=== PATIENT | female | born 1990 | race African-American/Black ===

== ENCOUNTER 2022-10-02 16:34 | Emergency (ER) | payer OTHER ==
[2022-10-02 17:05] VITALS: RESP 18; BMI 21.9
[2022-10-02 21:47] LABS: BASO % 0.8 % (0-2.0); EOS % 0.6 % (0-4.5); HEMATOCRIT 39.4 % (32.4-45.2); HEMOGLOBIN 12.9 GM/dL (10.7-15.3); LYMPH % 31.6 % (8-40); MCHC 32.8 g/dl (32.0-36.0); MEAN CELL VOLUME 88.4 fl (80-96); MONO % 6.6 % (3.8-10.2); NEUT % 60.4 % (42.8-82.8); PLATELET COUNT 261 10^3/uL (134-434); RBC 4.45 M/mm3 (3.60-5.2); RDW 14.1 % (11.6-15.6); WHITE BLOOD COUNT 6.8 K/mm3 (4.0-10.0)
[2022-10-02 22:08] LABS: CALCIUM 9.7 mg/dL (8.5-10.1)
[2022-10-02 22:09] LABS: ALBUMIN 3.6 g/dl (3.4-5.0); BLOOD UREA NITROGEN 12.6 mg/dL (7-18)
[2022-10-02 22:12] LABS: CREATININE 1.2 mg/dL (0.55-1.3)
[2022-10-02 22:13] LABS: TOT PROT 7.6 g/dl (6.4-8.2)
[2022-10-02 22:14] LABS: BILIRUBIN,TOTAL 0.3 mg/dL (0.2-1)
[2022-10-02] MEDS ORDERED: HALOPERIDOL LACTATE 5 MG/ML IM ONE ×2 (22:38→22:44)
[2022-10-02] MEDS ORDERED: LORazepam 2 MG/ML SDV VIAL IVPUSH ONE (22:41)
[2022-10-02] MEDS ORDERED: SODIUM CHLORIDE 0.9% 500 ML INFUS.BAG IV ONE (23:25)
[2022-10-03 01:21] VITALS: BP 176/98; PULSE 85; TEMP 98
== END 2022-10-03 01:23 | disposition home or self-care (01) ==
LOC: JER 16:34
PROC: 3E033GC Introduction of Other Therapeutic Substance into Peripheral Vein, Percutaneous Approach (ICD-10-PCS; principal; 2022-10-02)
PROC: 3E023GC Introduction of Other Therapeutic Substance into Muscle, Percutaneous Approach (ICD-10-PCS; principal; 2022-10-02)
DX: K59.09 Other constipation (principal)
CPT/HCPCS: 36415; 74177-TC; 80053; 83690; 84703; 85025; 99285-25; Q9967

== ENCOUNTER 2023-05-16 17:11 | Emergency (ER) | payer OTHER ==
[2023-05-16 17:34] VITALS: TEMP 97.3; BMI 21.1
[2023-05-16] MEDS ORDERED: ACETAMINOPHEN 1000 MG/100 ML BAG IVPB ONE (17:54)
[2023-05-16] MEDS ORDERED: ONDANSETRON 4 MG/2 ML VIAL IVPUSH ONE (18:29)
[2023-05-16] MEDS ORDERED: SODIUM CHLORIDE 0.9% 1000 ML INFUS.BAG IV ONE (18:29)
[2023-05-16] MEDS ORDERED: FAMOTIDINE 20 MG/50 ML IVPB 20 MG/50 ML MG IVPB ONE ×2 (18:29→18:51)
[2023-05-16] MEDS ORDERED: LABETALOL HCL 5 MG/1 ML (100MG/20 ML VIAL) IVPUSH ONE (18:29)
[2023-05-16 18:47] VITALS: PULSE 80; RESP 16
[2023-05-16 18:49] LABS: BASO % 0.4 % (0-2.0); EOS % 1.1 % (0-4.5); HEMATOCRIT 37.9 % (32.4-45.2); LYMPH % 18.5 % (8-40); MCH 28.3 pg (25.7-33.7); MCHC 31.7 g/dl (32.0-36.0); MEAN CELL VOLUME 89.2 fl (80-96); MEAN PLT VOLUME 11.7 fl (7.5-11.1); PLATELET COUNT 239 10^3/uL (134-434); RBC 4.24 M/mm3 (3.60-5.2); RDW 14.2 % (11.6-15.6); WHITE BLOOD COUNT 6.7 K/mm3 (4.0-10.0)
[2023-05-16] MEDS ORDERED: LABETALOL HCL 20 MG/4 ML VIAL ONE (18:50)
[2023-05-16] MEDS ORDERED: ACETAMINOPHEN INJECTION 100 ML IVPB ONE (18:50)
[2023-05-16] MEDS ORDERED: ONDANSETRON 4 MG/2 ML VIAL ONE (18:51)
[2023-05-16 19:26] LABS: CHLORIDE 110 mmol/L (98-107); POTASSIUM 4.2 mmol/L (3.5-5.1); SODIUM 144 mmol/L (136-145)
[2023-05-16 19:30] LABS: ALBUMIN 3.3 g/dl (3.4-5.0); ANION GAP 7 MMOL/L (8-16); BLOOD UREA NITROGEN 14.3 mg/dL (7-18); CALCIUM 9.1 mg/dL (8.5-10.1); CO2 27 mmol/L (21-32); GLUCOSE,RANDOM 107 mg/dL (74-106); LIPASE 154 U/L (73-393)
[2023-05-16 19:33] LABS: CREATININE 1.3 mg/dL (0.55-1.3); SGOT/AST 14 U/L (15-37); SGPT/ALT 14 U/L (13-61)
[2023-05-16 19:35] LABS: BILIRUBIN,TOTAL < 0.1 mg/dL (0.2-1); TOT PROT 7.2 g/dl (6.4-8.2)
[2023-05-16 19:36] LABS: ALK PHOS 99 U/L (45-117)
[2023-05-16] MEDS ORDERED: LORazepam 2 MG/ML SDV VIAL IVPUSH ONE ×2 (20:46→21:20)
[2023-05-16] MEDS ORDERED: AMOX TR/POTASSIUM CLAVULANATE 125 MG/5 ML BOTTLE 75ML PO ONE (22:29)
[2023-05-16 22:40] VITALS: BP 150/109
[2023-05-16] MEDS ORDERED: AMOX TR/POTASSIUM CLAVULANATE 400 MG/5 ML BOTTLE PO ONE (23:00)
[2023-05-16] MEDS ORDERED: AMOX TR/POTASSIUM CLAVULANATE 600 MG/5 ML PO ONE (23:00)
== END 2023-05-16 23:55 ==
LOC: JER 17:11
PROC: 3E033GC Introduction of Other Therapeutic Substance into Peripheral Vein, Percutaneous Approach (ICD-10-PCS; principal; 2023-05-16)
PROC: 3E033NZ Introduction of Analgesics, Hypnotics, Sedatives into Peripheral Vein, Percutaneous Approach (ICD-10-PCS; 2023-05-16)
PROC: 3E033GC Introduction of Other Therapeutic Substance into Peripheral Vein, Percutaneous Approach (ICD-10-PCS; 2023-05-16)
PROC: 3E033GC Introduction of Other Therapeutic Substance into Peripheral Vein, Percutaneous Approach (ICD-10-PCS; 2023-05-16)
PROC: 3E033GC Introduction of Other Therapeutic Substance into Peripheral Vein, Percutaneous Approach (ICD-10-PCS; 2023-05-16)
PROC: 3E033GC Introduction of Other Therapeutic Substance into Peripheral Vein, Percutaneous Approach (ICD-10-PCS; 2023-05-16)
DX: T17.908A Unspecified foreign body in respiratory tract, part unspecified causing other injury, initial encounter (principal); R11.10 Vomiting, unspecified; R10.9 Unspecified abdominal pain; H93.8X3 Other specified disorders of ear, bilateral; Z20.822 Contact with and (suspected) exposure to COVID-19
CPT/HCPCS: 0241U-QW; 36415; 74018-TC-FY; 80053; 83605; 83690; 84703; 85025; 99285-25

== ENCOUNTER 2023-06-03 17:33 | Emergency (ER) | payer OTHER ==
[2023-06-03 17:46] VITALS: TEMP 98.2; BMI 20.9
[2023-06-03] MEDS ORDERED: ACETAMINOPHEN 325 MG TABLET (FP) PO ONE (20:37)
[2023-06-03] MEDS ORDERED: ACETAMINOPHEN 325 MG TABLET (FP) ONE (21:15)
[2023-06-03] MEDS ORDERED: ACETAMINOPHEN INJECTION 100 ML IVPB ONE (21:23)
[2023-06-03] MEDS ORDERED: ACETAMINOPHEN 1000 MG/100 ML BAG IVPB ONE (21:23)
[2023-06-03 21:55] LABS: BASO % 0.8 % (0-2.0); EOS % 1.3 % (0-4.5); HEMATOCRIT 39.1 % (32.4-45.2); LYMPH % 34.3 % (8-40); MCH 29.1 pg (25.7-33.7); MCHC 33.4 g/dl (32.0-36.0); MEAN CELL VOLUME 87.3 fl (80-96); MEAN PLT VOLUME 11.3 fl (7.5-11.1); NEUT % 53.6 % (42.8-82.8); PLATELET COUNT 248 10^3/uL (134-434); RBC 4.48 M/mm3 (3.60-5.2); WHITE BLOOD COUNT 5.9 K/mm3 (4.0-10.0)
[2023-06-03 22:04] LABS: POTASSIUM 4.3 mmol/L (3.5-5.1)
[2023-06-03 22:06] LABS: ALBUMIN 3.4 g/dl (3.4-5.0); BLOOD UREA NITROGEN 12.1 mg/dL (7-18); CALCIUM 9.1 mg/dL (8.5-10.1); MAGNESIUM 1.8 mg/dL (1.8-2.4)
[2023-06-03 22:09] LABS: CREATININE 1.3 mg/dL (0.55-1.3)
[2023-06-03 22:11] LABS: BILIRUBIN,TOTAL 0.2 mg/dL (0.2-1); TOT PROT 7.3 g/dl (6.4-8.2)
[2023-06-03 22:43] LABS: PH,URINE 8.5 (5.0-8.0); URINE APPEARANCE CLEAR; URINE BILIRUBIN NEGATIVE (NEGATIVE); URINE COLOR YELLOW; URINE GLUCOSE (UA) NEGATIVE (NEGATIVE); URINE KETONE NEGATIVE (NEGATIVE); URINE LEUK ESTERASE NEGATIVE (NEGATIVE); URINE NITRITE NEGATIVE (NEGATIVE); URINE PROTEIN NEGATIVE (NEGATIVE); URINE UROBILINOGEN 0.2 mg/dL (0.2-1.0)
[2023-06-03 23:29] VITALS: BP 162/108; PULSE 78; RESP 16
== END 2023-06-04 00:21 | disposition home or self-care (01) ==
LOC: JER 17:33
PROC: 3E033NZ Introduction of Analgesics, Hypnotics, Sedatives into Peripheral Vein, Percutaneous Approach (ICD-10-PCS; principal; 2023-06-03)
DX: R10.30 Lower abdominal pain, unspecified (principal); R51.9 Headache, unspecified
CPT/HCPCS: 36415; 71046-TC-FY; 80053; 81003; 83605; 83690; 83735; 84484; 84703; 85025; 87086; 87186; 93005; 93010; 99285-25

== ENCOUNTER 2024-04-13 16:45 | Emergency (ER) | payer OTHER ==
[2024-04-13 17:21] VITALS: BP 0/0; PULSE 74; RESP 18; TEMP 98.2; BMI 20.6
[2024-04-13] MEDS ORDERED: HALOPERIDOL LACTATE 5 MG/ML ONE (18:17)
[2024-04-13] MEDS: HALOPERIDOL LACTATE 5 MG/ML IM ONE (18:20)
== END 2024-04-13 22:51 | disposition home or self-care (01) ==
LOC: JER 16:45
PROC: 3E023GC Introduction of Other Therapeutic Substance into Muscle, Percutaneous Approach (ICD-10-PCS; principal; 2024-04-13)
PROC: 3E023GC Introduction of Other Therapeutic Substance into Muscle, Percutaneous Approach (ICD-10-PCS; 2024-04-13)
DX: K59.09 Other constipation (principal); R10.9 Unspecified abdominal pain
CPT/HCPCS: 74018-TC-FY; 99284-25